=== PATIENT | female | born 1970 | race African-American/Black ===

== ENCOUNTER 2017-08-30 15:26 | Emergency (ER) | payer SELFPAY ==
[~2017-08-30] VITALS: Ht 160 cm; Wt 66.0 kg
[2017-08-30] MEDS ORDERED: ONDANSETRON HCL 4MG/2ML VIAL IV STA (17:17)
[2017-08-30] MEDS ORDERED: SODIUM CHLORIDE 0.9% 1000ML BAG (SEPSIS BOLUS) IV ONE (17:30)
[2017-08-30] MEDS ORDERED: LORAZEPAM 2MG/ML CPJ IV ONE (17:30)
[2017-08-30 17:38] LABS: HEMATOCRIT. 42.1 % (36.0-48.0); HEMOGLOBIN. 13.9 g/dL (12.0-16.0); MEAN CORPUSCULAR HEMOGLOBIN 28.5 pg (28.0-32.0); MEAN CORPUSCULAR VOLUME 86.1 fL (81.0-99.0); MEAN PLATELET VOLUME 7.6 fl (7.4-10.4); PLATELET 352 x1000/uL (130-400); RED BLOOD CELL COUNT 4.89 mill/uL (4.2-5.4); RED CELL DISTRIBUTION WIDTH 14.6 % (11.6-14.6)
[2017-08-30 17:43] LABS: PROTHROMBIN TIME 10.9 sec (9.4-11.6)
[2017-08-30 17:44] LABS: CHLORIDE 108 mEq/L (98-107)
[2017-08-30 17:53] LABS: CARBON DIOXIDE 22 mEq/L (21-32); TROPONIN I < 0.02 ng/mL (0.00-0.04)
[2017-08-30 17:58] LABS: ATYPICAL LYMPHOCYTES 1; PLATELET ESTIMATE NORMAL
[2017-08-30] MEDS ORDERED: SODIUM CHLORIDE 0.9% 1,000 ML IV ONE ×2 (20:00→20:45)
[2017-08-30 20:02] LABS: CLARITY URINE CLEAR (CLEAR); COLOR URINE YELLOW (YELLOW); KETONES URINE 1+ (NEGATIVE); LEUKOCYTE ESTERASE URINE NEGATIVE (NEGATIVE); NITRITE URINE NEGATIVE (NEGATIVE); OCCULT BLOOD URINE NEGATIVE (NEGATIVE); PROTEIN URINE NEGATIVE (NEGATIVE); SPECIFIC GRAVITY URINE 1.018 (1.005-1.030); UROBILINOGEN URINE 0.2 E.U./dL (0.2-1.0)
[2017-08-30 23:55] VITALS: BP 120/76
== END 2017-08-31 | disposition home or self-care (01) ==
LOC: ER 15:26 → CANBEDREQ 23:07 → ER 08-31
DX: J06.9 Acute upper respiratory infection, unspecified (principal); Z88.0 Allergy status to penicillin; Z88.5 Allergy status to narcotic agent; E05.90 Thyrotoxicosis, unspecified without thyrotoxic crisis or storm; F17.200 Nicotine dependence, unspecified, uncomplicated
CPT/HCPCS: 36415; 71045; 80053; 81003; 83605; 84484; 85025; 85610; 87040; 87086; 87804; 93005; 96361; 96374; 96375; 99285; J2060; J2405; J7030

== ENCOUNTER 2017-09-02 11:49 | Emergency (ER) | payer MEDICAID ==
[~2017-09-02] VITALS: Ht 165.1 cm; Wt 75.0 kg
[2017-09-02] MEDS ORDERED: ONDANSETRON 4MG ODT PO ONE (15:15)
[2017-09-02] MEDS ORDERED: OMEPRAZOLE 20MG CAPSULE EXTENDED RELEASE PO ONE (15:15)
[2017-09-02 15:31] LABS: BASOPHILS % 0.4 % (0.0-2.0); EOSINOPHILS % 0.1 % (0.0-5.0); HEMATOCRIT. 40.7 % (36.0-48.0); HEMOGLOBIN. 13.7 g/dL (12.0-16.0); LYMPHOCYTES % 32.5 % (20.0-50.0); MEAN CORPUSCULAR HEMOGLOBIN 29.2 pg (28.0-32.0); MEAN CORPUSCULAR VOLUME 86.5 fL (81.0-99.0); MEAN PLATELET VOLUME 7.4 fl (7.4-10.4); MONOCYTES % 7.4 % (2.0-8.0); NEUTROPHILS % 59.6 % (40.0-76.0); PLATELET 273 x1000/uL (130-400); RED BLOOD CELL COUNT 4.71 mill/uL (4.2-5.4); RED CELL DISTRIBUTION WIDTH 14.3 % (11.6-14.6)
[2017-09-02 15:35] LABS: CHLORIDE 104 mEq/L (98-107)
[2017-09-02 15:39] LABS: CARBON DIOXIDE 26 mEq/L (21-32)
[2017-09-02 15:58] LABS: CLARITY URINE CLOUDY (CLEAR); COLOR URINE YELLOW (YELLOW); KETONES URINE 4+ (NEGATIVE); LEUKOCYTE ESTERASE URINE NEGATIVE (NEGATIVE); NITRITE URINE NEGATIVE (NEGATIVE); OCCULT BLOOD URINE NEGATIVE (NEGATIVE); PROTEIN URINE 1+ (NEGATIVE); SPECIFIC GRAVITY URINE 1.021 (1.005-1.030)
[2017-09-02] MEDS ORDERED: FAMOTIDINE 20MG/2ML VIAL IV STA (16:03)
[2017-09-02] MEDS ORDERED: ONDANSETRON HCL 4MG/2ML VIAL IV ONE (16:15)
[2017-09-02] MEDS ORDERED: DEXT 5%/0.45% NACL 1000ML 1,000 ML IV ONE (16:15)
[2017-09-02] MEDS ORDERED: POTASSIUM CHLORIDE 20MEQ TABLET SR PO ONE (18:00)
[2017-09-02 18:25] VITALS: BP 142/78
== END 2017-09-02 18:29 | disposition home or self-care (01) ==
LOC: ER 11:54
DX: A59.9 Trichomoniasis, unspecified (principal); E87.6 Hypokalemia; E86.0 Dehydration; E83.51 Hypocalcemia; E05.90 Thyrotoxicosis, unspecified without thyrotoxic crisis or storm; J45.909 Unspecified asthma, uncomplicated; Z88.0 Allergy status to penicillin; Z88.5 Allergy status to narcotic agent; Z88.1 Allergy status to other antibiotic agents
CPT/HCPCS: 36415; 80053; 81001; 81025; 85025; 93005; 96374; 96375; 99285; J2405; J3490; Q0162; X7700; Z7610

== ENCOUNTER 2017-11-26 03:53 | Emergency (ER) | payer SELFPAY ==
[~2017-11-26] VITALS: Ht 160 cm; Wt 75.0 kg
[2017-11-26] MEDS ORDERED: ONDANSETRON HCL 4MG/2ML VIAL IV STA (04:09)
[2017-11-26] MEDS ORDERED: FAMOTIDINE 20MG/2ML VIAL IV STA (04:09)
[2017-11-26] MEDS ORDERED: SODIUM CHLORIDE 0.9% 1,000 ML IV ONE (04:09)
[2017-11-26] MEDS ORDERED: MORPHINE SULFATE 4 MG/ML CPJ (NOT FOR IM USE) IV STA (04:09)
[2017-11-26 04:58] LABS: BASOPHILS % 0.4 % (0.0-2.0); EOSINOPHILS % 0.9 % (0.0-5.0); HEMATOCRIT. 39.2 % (36.0-48.0); HEMOGLOBIN. 13.3 g/dL (12.0-16.0); LYMPHOCYTES % 26.5 % (20.0-50.0); MEAN CORPUSCULAR HEMOGLOBIN 29.6 pg (28.0-32.0); MEAN CORPUSCULAR VOLUME 87.3 fL (81.0-99.0); MONOCYTES % 5.5 % (2.0-8.0); NEUTROPHILS % 66.7 % (40.0-76.0); PLATELET 359 x1000/uL (130-400); RED BLOOD CELL COUNT 4.49 mill/uL (4.2-5.4)
[2017-11-26 05:05] LABS: HCG SCREEN NEGATIVE
[2017-11-26 05:06] LABS: PROTHROMBIN TIME 10.1 sec (9.4-11.6)
[2017-11-26 05:17] LABS: CHLORIDE 110 mEq/L (98-107)
[2017-11-26 05:21] LABS: ETHANOL BLOOD < 10 mg/dL
[2017-11-26] MEDS ORDERED: MAGNESIUM/ALUMINUM HYDROXIDE/SIMETHICONE 30ML UDC PO ONE (06:30)
[2017-11-26 06:39] LABS: CLARITY URINE CLOUDY (CLEAR); COLOR URINE YELLOW (YELLOW); KETONES URINE NEGATIVE (NEGATIVE); LEUKOCYTE ESTERASE URINE NEGATIVE (NEGATIVE); NITRITE URINE NEGATIVE (NEGATIVE); OCCULT BLOOD URINE NEGATIVE (NEGATIVE); PH URINE 5.5 (4.5-8.0); PROTEIN URINE NEGATIVE (NEGATIVE); SPECIFIC GRAVITY URINE 1.026 (1.005-1.030)
[2017-11-26 07:00] LABS: METHADONE URINE SCREEN NEGATIVE (NEGATIVE); OPIATES URINE SCREEN NEGATIVE (NEGATIVE)
[2017-11-26 07:01] LABS: *AMPHETAMINES SCREEN URINE NEGATIVE (NEGATIVE); *BARBITURATES SCREEN URINE NEGATIVE (NEGATIVE); *BENZODIAZEPINES SCREEN URINE NEGATIVE (NEGATIVE); *COCAINE SCREEN URINE NEGATIVE (NEGATIVE); PHENCYCLIDINE URINE SCREEN NEGATIVE (NEGATIVE)
[2017-11-26 07:17] LABS: CANNABINOID URINE SCREEN PRESUMTIVE POSITIVE (NEGATIVE)
[2017-11-26 08:50] VITALS: BP 133/68
== END 2017-11-26 09:47 | disposition home or self-care (01) ==
LOC: ER 05:06
DX: K29.70 Gastritis, unspecified, without bleeding (principal); N39.0 Urinary tract infection, site not specified; J45.909 Unspecified asthma, uncomplicated; E05.90 Thyrotoxicosis, unspecified without thyrotoxic crisis or storm; F17.200 Nicotine dependence, unspecified, uncomplicated; E66.9 Obesity, unspecified; Z68.29 Body mass index [BMI] 29.0-29.9, adult; Z88.5 Allergy status to narcotic agent; Z98.51 Tubal ligation status; Z88.0 Allergy status to penicillin
CPT/HCPCS: 36415; 74176; 80053; 80305; 81003; 83605; 83690; 83880; 84484; 84703; 85025; 85610; 93005; 96361; 96374; 96375; 99285; G0482; J2405; J3490; J7030

== ENCOUNTER 2020-03-07 20:57 | Emergency (ER) | payer MEDICAID ==
[~2020-03-07] VITALS: Ht 172.7 cm; Wt 73.0 kg
[2020-03-07] MEDS ORDERED: SODIUM CHLORIDE 0.9% 1,000 ML IV ONE (22:14)
[2020-03-07] MEDS ORDERED: ONDANSETRON HCL 4MG/2ML INJ IV STA (22:14)
[2020-03-07 22:54] LABS: BASOPHILS % 0.6 % (0.0-2.0); EOSINOPHILS % 1.6 % (0.0-5.0); HEMATOCRIT. 39.7 % (36.0-48.0); HEMOGLOBIN. 13.3 g/dL (12.0-16.0); LYMPHOCYTES % 22.9 % (20.0-50.0); MEAN CORPUSCULAR HEMOGLOBIN 29.3 pg (28.0-32.0); MEAN CORPUSCULAR VOLUME 87.7 fL (81.0-99.0); MEAN PLATELET VOLUME 7.5 fl (7.4-10.4); MONOCYTES % 5.7 % (2.0-8.0); NEUTROPHILS % 69.2 % (40.0-76.0); PLATELET 324 x1000/uL (130-400); RED BLOOD CELL COUNT 4.53 mill/uL (4.2-5.4)
[2020-03-07 23:00] LABS: CHLORIDE 108 mEq/L (98-107)
[2020-03-07 23:04] LABS: PROTHROMBIN TIME 10.8 sec (9.6-11.0)
[2020-03-08 01:54] VITALS: BP 118/69
== END 2020-03-08 02:17 | disposition left against medical advice (07) ==
LOC: ER 20:57 → CANBEDREQ 03-08 02:47
DX: R51 Headache (principal); R11.10 Vomiting, unspecified; J45.909 Unspecified asthma, uncomplicated; Z88.0 Allergy status to penicillin; Z88.5 Allergy status to narcotic agent
CPT/HCPCS: 36415; 70450; 80053; 83690; 85025; 85610; 93005; 96361; 96374; 99285; J2405; J7030

== ENCOUNTER 2021-08-25 05:09 | Emergency (ER) | payer MEDICAID ==
[~2021-08-25] VITALS: Ht 160 cm; Wt 77.0 kg
[2021-08-25 05:39] VITALS: BP 130/77
[2021-08-25] MEDS ORDERED: ACETAMINOPHEN 325MG TABLET PO ONE (06:15)
[2021-08-25] MEDS ORDERED: ONDANSETRON HCL 4MG TABLET PO ONE (06:15)
[2021-08-25 06:50] LABS: CHLORIDE 112 mEq/L (98-107)
[2021-08-25 06:53] LABS: BASOPHILS % 0.7 % (0.0-2.0); EOSINOPHILS % 2.5 % (0.0-5.0); HEMATOCRIT. 41.8 % (36.0-48.0); HEMOGLOBIN. 13.8 g/dL (12.0-16.0); LYMPHOCYTES % 23.6 % (20.0-50.0); MEAN CORPUSCULAR HEMOGLOBIN 29.1 pg (28.0-32.0); MEAN PLATELET VOLUME 7.8 fl (7.4-10.4); MONOCYTES % 5.5 % (2.0-8.0); NEUTROPHILS % 67.7 % (40.0-76.0); PLATELET 340 x1000/uL (130-400); RED BLOOD CELL COUNT 4.74 mill/uL (4.2-5.4); RED CELL DISTRIBUTION WIDTH 14.9 % (11.6-14.6)
[2021-08-25 07:47] LABS: CLARITY URINE CLEAR (CLEAR); COLOR URINE YELLOW (YELLOW); KETONES URINE NEGATIVE (NEGATIVE); LEUKOCYTE ESTERASE URINE NEGATIVE (NEGATIVE); NITRITE URINE NEGATIVE (NEGATIVE); OCCULT BLOOD URINE NEGATIVE (NEGATIVE); PROTEIN URINE NEGATIVE (NEGATIVE); SPECIFIC GRAVITY URINE 1.011 (1.005-1.030); UROBILINOGEN URINE 0.2 E.U./dL (0.2-1.0)
[2021-08-25] MEDS ORDERED: TOPUD PO (07:51)
[2021-08-25] MEDS ORDERED: ONDA4TAB5 PO (07:56)
== END 2021-08-25 08:24 | disposition home or self-care (01) ==
LOC: ER 05:09
DX: R10.84 Generalized abdominal pain (principal); R11.2 Nausea with vomiting, unspecified; Z20.822 Contact with and (suspected) exposure to COVID-19; Z88.0 Allergy status to penicillin; Z88.5 Allergy status to narcotic agent; Z88.1 Allergy status to other antibiotic agents
CPT/HCPCS: 36415; 80053; 81003; 83690; 85025; 87426; 93005; 99284; Q0162

== ENCOUNTER 2022-01-25 10:48 | Emergency (ER) | payer MEDICAID ==
[~2022-01-25] VITALS: Ht 167.6 cm; Wt 55.0 kg
[~2022-01-25 10:48] MED LIST: ONDA4TAB5 PO; TOPUD PO
[2022-01-25 10:52] VITALS: BP 134/90
[2022-01-25] MEDS ORDERED: IPRATROPIUM BROMIDE (0.02%) 0.5MG/2.5ML NEB HHN STA (18:15)
[2022-01-25] MEDS ORDERED: ALBUTEROL (0.083%) 2.5MG/3ML NEB HHN STA (18:15)
[2022-01-25] MEDS ORDERED: PREDNISONE 20MG TABLET PO STA (18:15)
[2022-01-25 18:34] LABS: BASOPHILS % 0.7 % (0.0-2.0); EOSINOPHILS % 2.3 % (0.0-5.0); HEMATOCRIT. 42.5 % (36.0-48.0); HEMOGLOBIN. 14.2 g/dL (12.0-16.0); LYMPHOCYTES % 27.3 % (20.0-50.0); MEAN CORPUSCULAR HEMOGLOBIN 28.9 pg (28.0-32.0); MEAN CORPUSCULAR VOLUME 86.5 fL (81.0-99.0); MEAN PLATELET VOLUME 7.6 fl (7.4-10.4); MONOCYTES % 5.9 % (2.0-8.0); NEUTROPHILS % 63.8 % (40.0-76.0); PLATELET 363 x1000/uL (130-400); RED BLOOD CELL COUNT 4.91 mill/uL (4.2-5.4); RED CELL DISTRIBUTION WIDTH 14.9 % (11.6-14.6)
[2022-01-25 18:56] LABS: CHLORIDE 107 mEq/L (98-107)
[2022-01-25] MEDS ORDERED: ALBU6.7H9 INH (20:36)
[2022-01-25] MEDS ORDERED: PRED10TA MT (20:36)
== END 2022-01-25 20:51 | disposition home or self-care (01) ==
LOC: ER 11:07
DX: J45.901 Unspecified asthma with (acute) exacerbation (principal); I10 Essential (primary) hypertension; Z88.0 Allergy status to penicillin; Z88.5 Allergy status to narcotic agent
CPT/HCPCS: 36415; 71045; 80053; 83880; 84484; 85025; 93005; 94640; 99285; J7512; Z7610

== ENCOUNTER 2022-02-04 04:43 | Emergency (ER) | payer MEDICAID ==
[~2022-02-04] VITALS: Ht 160 cm; Wt 85.0 kg
[~2022-02-04 04:43] MED LIST changes: +ALBU6.7H9 INH; +PRED10TA MT
[2022-02-04] MEDS ORDERED: KETOROLAC 60MG/2ML VIAL IM ONE (07:00)
[2022-02-04] MEDS ORDERED: METOCLOPRAMIDE 10MG/10 ML UDC PO ONE (07:00)
[2022-02-04 07:09] VITALS: BP 146/80
[2022-02-04] MEDS ORDERED: IBUP-2030 PO (07:55)
== END 2022-02-04 08:06 | disposition home or self-care (01) ==
LOC: ER 04:58
DX: G44.209 Tension-type headache, unspecified, not intractable (principal); J45.909 Unspecified asthma, uncomplicated; Z20.822 Contact with and (suspected) exposure to COVID-19; Z88.0 Allergy status to penicillin; Z88.5 Allergy status to narcotic agent; Z88.1 Allergy status to other antibiotic agents
CPT/HCPCS: 87426; 96372; 99283; C9803; J1885; J8597

== ENCOUNTER 2022-02-10 05:15 | Emergency (ER) | payer MEDICAID ==
[~2022-02-10] VITALS: Ht 160 cm; Wt 82.0 kg
[~2022-02-10 05:15] MED LIST changes: +IBUP-2030 PO
[2022-02-10 05:20] VITALS: BP 133/87
[2022-02-10] MEDS ORDERED: MAGNESIUM/ALUMINUM HYDROXIDE/SIMETHICONE 30ML UDC PO STA (08:11)
[2022-02-10] MEDS ORDERED: ONDANSETRON 4MG ODT PO STA (08:11)
[2022-02-10 08:51] LABS: BASOPHILS % 0.6 % (0.0-2.0); EOSINOPHILS % 0.8 % (0.0-5.0); HEMATOCRIT. 42.3 % (36.0-48.0); LYMPHOCYTES % 50.7 % (20.0-50.0); MEAN CORPUSCULAR HEMOGLOBIN 28.5 pg (28.0-32.0); MEAN CORPUSCULAR VOLUME 86.1 fL (81.0-99.0); MEAN PLATELET VOLUME 7.6 fl (7.4-10.4); MONOCYTES % 10.2 % (2.0-8.0); NEUTROPHILS % 37.7 % (40.0-76.0); PLATELET 277 x1000/uL (130-400); RED BLOOD CELL COUNT 4.91 mill/uL (4.2-5.4); RED CELL DISTRIBUTION WIDTH 14.3 % (11.6-14.6)
[2022-02-10 08:57] LABS: CHLORIDE 109 mEq/L (98-107)
[2022-02-10 09:38] LABS: CLARITY URINE CLOUDY (CLEAR); COLOR URINE DARK YELLOW (YELLOW); KETONES URINE 3+ (NEGATIVE); LEUKOCYTE ESTERASE URINE NEGATIVE (NEGATIVE); NITRITE URINE NEGATIVE (NEGATIVE); OCCULT BLOOD URINE NEGATIVE (NEGATIVE); PROTEIN URINE 1+ (NEGATIVE)
[2022-02-10] MEDS ORDERED: OMEP40CA20 MT (10:10)
[2022-02-10] MEDS ORDERED: ONDA4TAB50 MT (10:10)
== END 2022-02-10 10:29 | disposition home or self-care (01) ==
LOC: ER 05:28
DX: B37.49 Other urogenital candidiasis (principal); R03.0 Elevated blood-pressure reading, without diagnosis of hypertension; Z88.0 Allergy status to penicillin; Z88.1 Allergy status to other antibiotic agents; Z88.5 Allergy status to narcotic agent
CPT/HCPCS: 36415; 74176; 80053; 81003; 85025; 99284; Q0162